=== PATIENT | female | born 1935 | race Caucasian/White ===

== ENCOUNTER → 2019-10-14 | Outpatient (CLI) | payer OTHER ==
[~2019-10-14] MED LIST: AGGRENOX 25 MG1 EACH PO; COLACE100 MG PO; FERREX 150150 MG PO; FISH OIL 1,001000 M2 PO; HYDROCHLOROTHIA25 M2 PO; LISINOPRIL10 MG PO; LISINOPRIL5 MG PO; LORTAB 5-325 M1 EACH PO; METFORMIN HCL500 MG PO; METOPROLOL SUC100 MG PO; NOHOMEMEDICATIONS; NORVASC10 MG PO; PACERONE 200 M200 M1 PO; PAXIL10 MG; PRAVACHOL80 MG PO; PREVACID30 MG PO; TOPROL XL100 MG PO; UNICOMPLEX M TA1 TA1 PO
== END ==
LOC: SJCVCIMAG 10:13 → SJCVC 10:13
PROVIDERS: ATTEND Internal Medicine Cardiovascular Disease
DX: I08.8 Other rheumatic multiple valve diseases (principal); I11.9 Hypertensive heart disease without heart failure; R94.31 Abnormal electrocardiogram [ECG] [EKG]; I48.0 Paroxysmal atrial fibrillation; I25.810 Atherosclerosis of coronary artery bypass graft(s) without angina pectoris; I65.23 Occlusion and stenosis of bilateral carotid arteries; E04.1 Nontoxic single thyroid nodule; E11.9 Type 2 diabetes mellitus without complications; E78.5 Hyperlipidemia, unspecified; Z95.1 Presence of aortocoronary bypass graft; Z79.899 Other long term (current) drug therapy; Z82.49 Family history of ischemic heart disease and other diseases of the circulatory system; Z86.73 Personal history of transient ischemic attack (TIA), and cerebral infarction without residual deficits

== ENCOUNTER → 2020-05-14 | Outpatient (CLI) | payer OTHER | LOC: SJCVC 10:38 | PROVIDERS: ATTEND Internal Medicine Cardiovascular Disease | DX: R94.31 Abnormal electrocardiogram [ECG] [EKG] (principal); I45.2 Bifascicular block; I25.810 Atherosclerosis of coronary artery bypass graft(s) without angina pectoris; I35.0 Nonrheumatic aortic (valve) stenosis; E78.00 Pure hypercholesterolemia, unspecified; I10 Essential (primary) hypertension; E78.5 Hyperlipidemia, unspecified; I48.0 Paroxysmal atrial fibrillation; E11.9 Type 2 diabetes mellitus without complications; I25.5 Ischemic cardiomyopathy; Z95.1 Presence of aortocoronary bypass graft; Z86.73 Personal history of transient ischemic attack (TIA), and cerebral infarction without residual deficits; Z86.16 Personal history of COVID-19; Z79.899 Other long term (current) drug therapy ==

== ENCOUNTER → 2021-01-12 | Outpatient (CLI) | payer OTHER | LOC: SJCVCIMAG 08:29 | PROVIDERS: ATTEND Internal Medicine Cardiovascular Disease | DX: R94.31 Abnormal electrocardiogram [ECG] [EKG] (principal); I08.8 Other rheumatic multiple valve diseases; I25.810 Atherosclerosis of coronary artery bypass graft(s) without angina pectoris; I11.9 Hypertensive heart disease without heart failure; E78.00 Pure hypercholesterolemia, unspecified; I25.5 Ischemic cardiomyopathy; I34.0 Nonrheumatic mitral (valve) insufficiency; I35.0 Nonrheumatic aortic (valve) stenosis; R06.02 Shortness of breath; Z86.16 Personal history of COVID-19; Z79.899 Other long term (current) drug therapy ==

== ENCOUNTER 2021-03-26 11:13 | Emergency (ER) | payer OTHER ==
[~2021-03-26] VITALS: Ht 160 cm; Wt 68.0 kg
[2021-03-26 11:46] LABS: ABSOLUTE NEUTROPHILS 5.6 thou/uL (1.4-8.2); BASOPHILS 0.7 % (0.0-2.0); EOSINOPHILS 1.1 % (0.0-3.0); HEMATOCRIT 41.9 % (37.0-47.0); HEMOGLOBIN 13.4 gm/dL (12.0-15.0); MCH 30.9 pg (26.0-34.0); MCV 96.6 fL (80.0-100.0); MONOCYTES 8.2 % (1.0-8.0); PLATELET COUNT 172 thou/uL (150-400); RBC 4.34 mil/uL (4.20-5.00)
[2021-03-26 11:57] LABS: CALCIUM 9.5 mg/dL (8.5-10.1); CREATININE 1.1 mg/dL (0.6-1.0); POTASSIUM 4.7 mmol/L (3.5-5.1)
[2021-03-26 12:07] LABS: TOTAL BILIRUBIN 0.7 mg/dL (0.2-1.0)
[2021-03-26 14:43] VITALS: BP 171/74
--- NOTE | 2021-03-27 10:20 | EKG ---
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 : 1935 Requested By: Abad Blank Order Number: [id number] MD: Karsten Swanson Measurements Intervals [place] Rate: 83 P: 75 VT: 197 QRS: -41 QRSD: 126 T: 109 QT: 406 QTc: 477 Interpretive Statements Sinus rhythm Ventricular trigeminy Left bundle branch block Baseline wander in lead(s) I,II,aVR,aVF No previous ECG available for comparison Electronically Signed On 03-27-2021 10:20:43 [employer] by Karsten Swanson [email or web address] <ELECTRONICALLY SIGNED> By: Karsten Swanson MD, [facility] 03/27/21 1020 D: [id number] Karsten Swanson MD, FAC /EPI
== END 2021-03-26 14:43 | disposition home or self-care (01) ==
LOC: ER 11:13 → EDBD 11:13 → ER 14:43
PROVIDERS: Emergency Medicine
DX: R07.89 Other chest pain (principal)

== ENCOUNTER → 2021-04-01 | Outpatient (CLI) | payer OTHER | LOC: SJCVC 12:49 | PROVIDERS: ATTEND Nurse Practitioner | DX: I25.810 Atherosclerosis of coronary artery bypass graft(s) without angina pectoris (principal); R07.9 Chest pain, unspecified; I35.0 Nonrheumatic aortic (valve) stenosis; I10 Essential (primary) hypertension; E78.00 Pure hypercholesterolemia, unspecified; I25.5 Ischemic cardiomyopathy; F41.9 Anxiety disorder, unspecified; E78.5 Hyperlipidemia, unspecified; I48.91 Unspecified atrial fibrillation; E11.9 Type 2 diabetes mellitus without complications; Z79.899 Other long term (current) drug therapy ==